=== PATIENT | male | born 1970 | race Caucasian/White ===

== ENCOUNTER → 2017-08-25 | Outpatient (CLI) | payer BC ==
--- NOTE | 2017-08-25 08:26 | RAD ---
Indication: Pain in the left knee. Time of exam 0811 hours. 3 views of the left knee were obtained. The alignment is normal. The joint spaces are well-maintained. The articular surfaces are smooth. No fracture, dislocation or effusion is identified. Impression: No acute abnormality is detected.
== END | disposition home or self-care (01) ==
LOC: PMG 07:49
PROVIDERS: ATTEND Physician Assistant Medical
DX: M25.562 Pain in left knee (principal)
CPT/HCPCS: 73562

== ENCOUNTER → 2018-09-14 | Outpatient (CLI) | payer BC ==
--- NOTE | 2018-09-14 12:14 | RAD ---
EXAM: Lumbar spine, 5 views. HISTORY: Radiculopathy. COMPARISON: 06/26/2016 FINDINGS: Frontal, lateral and coned sacral views of the lumbar spine are obtained. There is instrumented posterior thoracolumbar fusion from T11 to L3 and left lateral fusion at T12-L2. There is partial bony bridging at T12-L2. There is mild retrolisthesis of L3 on L4 and L4 and L5 and minimal grade 1 anterolisthesis of L5 on S1. There is degenerative endplate remodeling with anterior spurring at the majority of the lumbar levels. There is facet arthropathy predominantly at the lower lumbar levels. IMPRESSION: 1. Instrumented fusion at T11-L3, with partial bony bridging at T12-L2. 2. Multilevel degenerative change throughout the lumbar spine, described above. There is no acute osseous finding. Electronically signed by: Kirsten Logan MD (09/14/2018 12:10 PM) [facility]
== END | disposition home or self-care (01) ==
LOC: PMG 09:00
DX: M43.25 Fusion of spine, thoracolumbar region (principal); M47.896 Other spondylosis, lumbar region; M12.88 Other specific arthropathies, not elsewhere classified, other specified site; M43.16 Spondylolisthesis, lumbar region; M43.17 Spondylolisthesis, lumbosacral region
CPT/HCPCS: 72100

== ENCOUNTER → 2018-09-27 | Outpatient (CLI) | payer BC ==
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
== END | disposition home or self-care (01) ==
LOC: CT 09:07
DX: M85.88 Other specified disorders of bone density and structure, other site (principal); M12.88 Other specific arthropathies, not elsewhere classified, other specified site; M48.061 Spinal stenosis, lumbar region without neurogenic claudication; M48.07 Spinal stenosis, lumbosacral region; M25.78 Osteophyte, vertebrae; M43.16 Spondylolisthesis, lumbar region
CPT/HCPCS: 72131

== ENCOUNTER → 2018-10-12 | Outpatient (CLI) | payer BC ==
--- NOTE | 2018-10-12 14:31 | RAD ---
Examination: DUPLEX LOWER EX ARTERIAL RIGHT History: Right leg pain with radiculopathy Comparison/Correlation: None Findings: Duplex arterial ultrasound examination of the right direction was performed. Calcification of the arterial bermeo noted. Right common femoral artery has velocity of 76 cm/s with triphasic waveform. Deep femoral artery has a triphasic waveform at 62 cm/s peak systolic velocity. The superficial femoral artery velocity ranges from 98 cm/s proximally to 53 cm/s distally with triphasic waveform. Popliteal artery has triphasic waveform of 53 cm/s. Posterior tibial artery has velocity of 44 cm/s proximally and 72 cm/s distally with triphasic waveform. Peroneal artery has 64 cm/s peak systolic velocity with biphasic waveform. Indication renal artery has 70 cm/s peak systolic velocity. Dorsalis pedis artery has 60 cm/s peak systolic velocity. Triphasic waveforms identified. Impression: No hemodynamically significant right lower extremity arterial stenosis. Electronically signed by: Devyn Wallace MD (10/12/2018 2:27 PM) [facility]
== END | disposition home or self-care (01) ==
LOC: US 07:43
DX: E11.51 Type 2 diabetes mellitus with diabetic peripheral angiopathy without gangrene (principal); I70.201 Unspecified atherosclerosis of native arteries of extremities, right leg; I10 Essential (primary) hypertension
CPT/HCPCS: 93926

== ENCOUNTER → 2019-03-01 | Outpatient (CLI) | payer BC ==
--- NOTE | 2019-03-01 10:26 | CARD ---
MR#: [id number] Date of Study: 03/01/2019 Ordering Physician: VADIM TY, Referring Physician: VADIM TY, Tech: Kathrine García APPROVED REPORT EXAM: Two-dimensional and M-mode echocardiogram with Doppler and color Doppler. Other Information Quality : FairHR: 66bpm Technically limited study due to Body Habitus INDICATION Hypertension/HCVD RISK FACTORS Diabetes 2D DIMENSIONS Left Atrium(2D)3.8 (1.6-4.0cm)IVSd1.2 (0.7-1.1cm) Aortic Root(2D)3.4 (2.0-3.7cm)LVDd5.2 (3.9-5.9cm) LVOT Diameter2.2 (1.8-2.4cm)PWd1.2 (0.7-1.1cm) LVDs2.8 (2.5-4.0cm)FS (%) 45.3 % SV96.9 mlLVEF(%)76.3 (>50%) Aortic Valve AoV Peak Rakan.105.8cm/sAoV VTI21.3cm AO Peak GR.4.1mmHgLVOT Peak Rakan.99.9cm/s LVOT VTI 17.82cmAO Mean GR.3mmHg NAVYA (VMAX)3.78ya3NMR (VTI)3.07cm2 Mitral Valve MV E Ncuqhngx47.1cm/sMV DECEL NOOA765uy MV A Jgducscs95.1cm/sE/A Ratio0.9 Pulmonary Valve PV Peak Kkmmnkjj57.4cm/sPV Peak Grad.3mmHg Pulmonary Vein S1 Csediqur64.0cm/sD2 Kpgiskwz12.3cm/s LEFT VENTRICLE The left ventricle is normal size. There is mild to moderate concentric left ventricular hypertrophy. The left ventricular systolic function is normal. The Ejection Fraction is 55-60%. There is normal L V segmental wall motion. RIGHT VENTRICLE The right ventricle is normal size. There is normal right ventricular wall thickness. The right ventr icular systolic function is normal. ATRIA The left atrium size is normal. The right atrium size is normal. The interatrial septum is intact wit h no evidence for an atrial septal defect or patent foramen ovale as noted on 2-D or Doppler imaging. AORTIC VALVE The aortic valve is not well visualized. Doppler and Color Flow revealed no significant aortic regurg itation. There is no significant aortic valvular stenosis. MITRAL VALVE The mitral valve is normal in structure and function. There is no evidence of mitral valve prolapse. There is no mitral valve stenosis. Doppler and Color Flow revealed no mitral valve regurgitation note d. TRICUSPID VALVE The tricuspid valve is not well visualized. Doppler and Color Flow revealed no tricuspid valve regurg itation noted. There is no tricuspid valve stenosis. PULMONIC VALVE The pulmonic valve is not well visualized. Doppler and Color Flow revealed trace pulmonic valvular re gurgitation. GREAT VESSELS The aortic root is normal in size. The IVC is normal in size and collapses >50% with inspiration. PERICARDIAL EFFUSION There is no evidence of significant pericardial effusion. Critical Notification Critical Value: No <Conclusion> The left ventricular systolic function is normal. The Ejection Fraction is 55-60%. There is normal LV segmental wall motion. There is no evidence of significant pericardial effusion. Signed by : Vadim Ty, Electronically Approved : 03/01/2019 10:25:55
--- NOTE | 2019-03-01 12:03 | RAD ---
MR#: [id number] Date of Study: 03/01/2019 Ordering Physician: VADIM VILLALBA, Referring Physician: VADIM VILLALBA, Tech: Desiree Comer RDMS, RVT, RTR APPROVED REPORT Lower Extremity Venous Study for Venous Competence, DVT Patient Location: OUT-PATIENT Indications The bilateral lower extremity deep veins were evaluated for thrombus with color Doppler, spectral and grayscale images. On the right the grayscale images of the common femoral, superficial femoral and popliteal veins do n ot demonstrate any evidence of thrombus and these veins appear to be compressible. The below-knee vei ns were not well visualized but grossly appear to be compressible. Spectral imaging and color Doppler do not reveal any evidence of obstruction to flow with normal respirophasic variation above the knee . Below the knee there is spontaneous flow noted. On the left, the grayscale images of the common femoral, superficial femoral and popliteal veins do n ot demonstrate any evidence of thrombus and these veins appear to be compressible. The below-knee vei ns again were not well visualized but grossly appear to be compressible. Spectral imaging and color D oppler do not reveal any evidence of obstruction to flow with normal respirophasic variation above th e knee. The below-knee veins demonstrate spontaneous flow. Critical Notification Critical Value: No <Conclusion> 1. Technically difficult study. 2. Grossly no DVT in the bilateral LE deep veins. Signed by : Justice Galicia, Electronically Approved : 03/01/2019 12:03:07
--- NOTE | 2019-03-01 12:47 | RAD ---
MR#: [id number] Date of Study: 03/01/2019 Ordering Physician: VADIM VILLALBA, Referring Physician: VADIM VILLALBA, Tech: Desiree Comer RDMS, RVT, RTR APPROVED REPORT Patient Location : OUT-PATIENT Indications Stasis Disease Grayscale images of the bilateral saphenofemoral junctions do not reveal any obvious evidence of thro mbus. The right great saphenous vein measures 7.6 mm and the left great saphenous vein measures 7.7 m m. There is no evidence of reflux in the bilateral greater saphenous veins. The bilateral lesser saphenous veins also do not show any evidence of reflux. Critical Notification Critical Value: No <Conclusion> 1. Negative for reflux in the bilateral greater and lesser saphenous veins. Signed by : Justice Galicia, Electronically Approved : 03/01/2019 12:46:56
== END | disposition home or self-care (01) ==
LOC: ECHO 07:47
PROVIDERS: ATTEND Internal Medicine Cardiovascular Disease
DX: I11.9 Hypertensive heart disease without heart failure (principal); R60.0 Localized edema; M79.604 Pain in right leg; M79.605 Pain in left leg; E11.9 Type 2 diabetes mellitus without complications
CPT/HCPCS: 93306; 93970